=== PATIENT | female | born 1955 | race Caucasian/White ===

== ENCOUNTER 2016-12-21 07:43 | Emergency (ER) | payer MEDICARE, BC ==
--- NOTE | ~2016-12-21 | CR230 ---
[facility] Service of [facility] & [facility] RADIOLOGY TEXT RESULTS PATIENT: DEBI HERNÁNDEZ LOCATION: [facility] : 53 UNIT #: [id number] AGE: [address]: Caroline Horner APRN SEX: F ORDER DR: [id number] [facility] [address] [place], [place] [address] [id number] E MR#: [id number] Acc #: [id number] NAME: DEBI HERNÁNDEZ : 1955 SEX: F STUDY DATE/TIME: 12/21/2016 7:35 UNIT: [facility] ROOM: STUDY DESCRIPTION: CR Shoulder Min 2 View Rt Attending Physician: Caroline Horner A.P.R.N. Ordering Physician: Ed Doctor [id number] [facility] Primary Care Physician: Lorenzo Dejesus D.O. MEDICAL IMAGING REPORT This report is preliminary unless electronic signature is present EXAM Right shoulder HISTORY Right shoulder pain after a fall today. FINDINGS 3 views of the right shoulder were obtained. There is no fracture or dislocation visible. There may be minimal spurring from the humeral head. IMPRESSION No acute injury or fracture or dislocation is identified. Dictated by... Carlos Alberto Benavides M.D. THIS IS AN ELECTRONICALLY VERIFIED REPORT Carlos Alberto Benavides M.D. at 12/21/2016 1:37 PM Billy TD: 12/21/2016 09:14 JOB #: [id number] MEDICAL IMAGING REPORT Page 1 of 1 COPY
--- NOTE | ~2016-12-21 | CT92 ---
[facility] A Service of [facility] RADIOLOGY TEXT RESULTS PATIENT: DEBI HERNÁNDEZ LOCATION: [facility] : 53 UNIT #: [id number] AGE: [address]: Caroline Horner APRN SEX: F ORDER DR: [id number] [facility] [address] [place], [place] [address] [id number] E MR#: [id number] Acc #: [id number] NAME: DEBI HERNÁNDEZ : 1955 SEX: F STUDY DATE/TIME: 12/21/2016 9:28 UNIT: [facility] ROOM: STUDY DESCRIPTION: CT Lower Ext Lt Wo Cont Attending Physician: Caroline Horner A.P.R.N. Ordering Physician: Caroline Horner A.P.R.N. Primary Care Physician: Lorenzo Dejesus D.O. MEDICAL IMAGING REPORT This report is preliminary unless electronic signature is present EXAM CT of the pelvis and hips without contrast - with coronal and sagittal reconstructions, 12/21/2016. COMPARISON STUDIES Left lower extremity venous Doppler, 12/21/2016. There are no correlative radiographs. HISTORY Technologist reports fell 12/03/2016. Left leg and hip pain. History of diabetes. No related surgery. TECHNIQUE This CT exam was performed with one or more of the following radiation dose reduction techniques: automatic exposure control, adjustment of mA and/or kV according to patient size, and iterative reconstruction. FINDINGS There is no fracture or dislocation. Specifically, left hip shows no visible fracture or osseous lesion. There is no hematoma. There are some chronic-appearing calcifications adjacent to the left greater trochanter in the region of the left gluteus minimus tendon insertion. There is no obvious surrounding gross edema or fluid. This could reflect chronic enthesopathy or less likely calcific tendinitis (calcium hydroxyapatite deposition disease). Correlate for pinpoint pain in this area. There is no gluteal muscle atrophy. There is atherosclerotic vascular calcification. There is minimal subcutaneous stranding of the anterior thighs, left greater than right, and in the lower abdominal subcutaneous space. [facility] A Service of [facility] & [facility] RADIOLOGY TEXT RESULTS PATIENT: DEBI HERNÁNDEZ LOCATION: [facility] #: [id number] : 51 UNIT #: [id number] AGE: [address]: Caroline Horner APRN SEX: F ORDER DR: Correlate for subcutaneous injections as the most common etiology. There is atherosclerotic vascular calcification. Sigmoid diverticulosis is noted. Hysterectomy is presumed. No internal pelvic pathology is otherwise noted. Small subarticular cyst at the right anterior inferior acetabulum could reflect mild arthritic change. This is opposite to the reported left-sided symptoms. IMPRESSION 1. No pelvic or hip fracture. 2. Several calcifications adjacent to the left greater trochanter in the region of the gluteus minimus tendon insertion most likely due to chronic enthesopathic change. Symptomatic calcific tendonitis (calcium hydroxyapatite deposition disease) is considered less likely as there is no obvious significant edema. Correlate for any pinpoint tenderness in this area. 3. Vascular calcification, sigmoid diverticulosis, and subcutaneous stranding in the lower pelvic subcutaneous space anteriorly and in the anterior thighs. Correlate for subcutaneous injections. 4. No acute abnormalities are noted. Dictated by... Nicole Lazo M.D. THIS IS AN ELECTRONICALLY VERIFIED REPORT Nicole Lazo M.D. at 12/21/2016 1:57 PM MARIE/scotty TD: 12/21/2016 11:10 JOB #: [id number] MEDICAL IMAGING REPORT Page 1 of 1 COPY
--- NOTE | ~2016-12-21 | US85 ---
[facility] A Service of [facility] & [facility] RADIOLOGY TEXT RESULTS PATIENT: DEBI HERNÁNDEZ LOCATION: [facility] : 53 UNIT #: [id number] AGE: [address]: Caroline Horner APRN SEX: F ORDER DR: [id number] [facility] [address] [place], [place] [address] [id number] E MR#: [id number] Acc #: [id number] NAME: DEBI HERNÁNDEZ : 1955 SEX: F STUDY DATE/TIME: 12/21/2016 9:08 UNIT: [facility] ROOM: STUDY DESCRIPTION: [facility] [employer] Attending Physician: Caroline Horner A.P.R.N. Ordering Physician: Ed Jose M Archibald M.D. Primary Care Physician: Lorenzo Dejesus D.O. MEDICAL IMAGING REPORT This report is preliminary unless electronic signature is present EXAM Left lower extremity venous duplex Doppler. INDICATION Left lower extremity pain radiating from the hip into the left leg. 3-week duration. Followup 12/03/2016. COMPARISON None available. FINDINGS No deep vein thrombus is identified in the left lower extremity. The left common femoral vein through the left popliteal vein are widely patent. There is normal compressibility, spontaneous and phasic waveforms. No calf vein thrombus. IMPRESSION Negative for left lower extremity deep vein thrombosis. Dictated by... Bunny Bell M.D. THIS IS AN ELECTRONICALLY VERIFIED REPORT Bunny Bell M.D. at 12/21/2016 11:30 AM CLARIBEL/scotty TD: 12/21/2016 10:28 JOB #: [id number] MEDICAL IMAGING REPORT Page 1 of 1 COPY
== END 2016-12-21 11:19 | disposition home or self-care (01) ==
LOC: CED 07:43
DX: S46.911A Strain of unspecified muscle, fascia and tendon at shoulder and upper arm level, right arm, initial encounter (principal); S70.02XA Contusion of left hip, initial encounter; E11.9 Type 2 diabetes mellitus without complications; I10 Essential (primary) hypertension; G35 Multiple sclerosis; M79.662 Pain in left lower leg; F17.210 Nicotine dependence, cigarettes, uncomplicated; W19.XXXA Unspecified fall, initial encounter; Y92.009 Unspecified place in unspecified non-institutional (private) residence as the place of occurrence of the external cause
CPT/HCPCS: 73030; 73700; 93971; 96372; 99284; J2270

== ENCOUNTER 2016-12-24 15:01 | Inpatient (IN) | payer MEDICARE, BC ==
--- NOTE | ~2016-12-24 | DS ---
Unit #: [id number] #: [id number] Patient: DEBI HERNÁNDEZ [id number] [address] [address] [id number] I MR#: [id number] NAME: DEBI HERNÁNDEZ. ROOM: 569 Age: 61 Sex: F Admission Date: 12/24/2016 : 1955 Discharge Date: 12/30/2016 Attending Physician: Fei Rios M.D. Primary Care Physician: Lorenzo Dejesus D.O. DISCHARGE SUMMARY CHIEF COMPLAINT Hypoxemia. ADMITTING DIAGNOSES 1. Acute hypoxic respiratory failure. 2. Diabetes mellitus type 2, poorly controlled. 3. Hypertension. 4. Hyperlipidemia. 5. Multiple sclerosis. 6. History of chronic obstructive pulmonary disease. 7. History of chronic smoking. 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 HISTORY OF PRESENTING ILLNESS The patient is a 61-year-old lady with a past medical history of diabetes, hypertension, hyperlipidemia, multiple sclerosis, COPD, and a chronic smoker, who was admitted through the emergency room because of hypoxemia. She was on home oxygen and in spite of (1) her pulse oximetry was low. It was 83% on room air. She also had a spike of fever up to 100.7 at home prior to hospitalization. HOSPITAL COURSE She was started on steroids, breathing treatments, and antimicrobials. She was seen by Pulmonary. She did have an ultrasound of lower extremities which was negative for DVT. She started to (2) her oxygen requirements were coming down. I spoke with her multiple times requesting her to quit smoking. She is doing clinically better, and she will be discharged to pulmonary rehab. PHYSICAL EXAMINATION ON DAY OF DISCHARGE VITAL SIGNS: Temperature 97.7, pulse rate 65, respirations 18, and blood pressure 135/58. GENERAL: Patient is alert, oriented x3, and lying in the bed in no acute distress. HEENT: Normocephalic and atraumatic. No icterus. PERRLA. Extraocular muscles intact. CHEST: Bilateral equal air entry, clear to auscultation. HEART: S1 and S2, regular rate and rhythm. ABDOMEN: Soft and nontender. Bowel sounds presents. EXTREMITIES: No edema. Normal pulses. Unit #: [id number] #: [id number] Patient: DEBI HERNÁNDEZ DISCHARGE MEDICATIONS 1. Tapering dose of oral prednisone. 2. Combivent 3 mL q.4 p.r.n. for shortness of breath. 3. Zoloft 25 mg daily. 4. Metformin 500 mg twice daily. 5. Nicotine 14 mg topical patch daily. 6. Norvasc 10 mg daily. 7. Humibid-LA 600 mg p.o. twice daily. 8. Lipitor 20 mg daily. 9. NovoLog insulin sliding scale. 10. Omeprazole 20 mg daily. 11. Vitamin D (cholecalciferol) 1000 units p.o. daily. 12. Copaxone 20 mg IM. She is supposed to get shots weekly as an outpatient. FOLLOWUP She is instructed to follow with her primary care after discharge. Total time spent in her discharge 35 minutes. Dictated by... Uyen Casarez/marcela TD: 12/30/2016 14:43 JOB #: [id number] DISCHARGE SUMMARY Page 1 of 1 X X DISCHARGE SUMMARY
--- NOTE | ~2016-12-24 | CR72 ---
[facility] A Service of [facility] & [facility] RADIOLOGY TEXT RESULTS PATIENT: DEBI HERNÁNDEZ LOCATION: [facility] 569-01 : 53 UNIT #: [id number] AGE: [address]: Silvia Cummins MD SEX: F ORDER DR: [id number] [facility] [address] [place], [place] [address] [id number] E MR#: [id number] Acc #: [id number] NAME: DEBI HERNÁNDEZ : 1955 SEX: F STUDY DATE/TIME: 12/24/2016 15:05 UNIT: [facility] ROOM: STUDY DESCRIPTION: CR Chest Single View Portable Attending Physician: Filipe Brock D.O. Ordering Physician: Filipe Brock D.O. Primary Care Physician: Lorenzo Dejesus D.O. MEDICAL IMAGING REPORT This report is preliminary unless electronic signature is present EXAM Portable chest x-ray 12/24/2016 HISTORY Short of air. Low O2 sats, cough, congestion, fever began 3 days ago. Smoker 50 years. Single AP radiograph chest is presented. COMPARISON STUDIES No comparisons. Comparison with prior study strongly recommended if available. FINDINGS No acute-appearing bony abnormality. Heart [id number] limits of normal in size. Lungs slightly hyperinflated suggesting underlying COPD in this patient with long-term history of tobacco usage. Ill-defined patchy densities in the left hilar region and in the left lower lung zone and to a lesser extent the right lower lung zone. Findings probably reflect, given stated history, multifocal pneumonia. The left hilar densities are more pronounced than those elsewhere and have a vaguely band-like or slightly nodular configuration. This could be a reflection of some degree of underlying atelectasis in addition to the presumed pneumonia. In light of the patient's long-term tobacco usage, short interval followup in 2-3 weeks after treatment for presumed pneumonia is strongly recommended to confirm resolution of findings particularly given the slightly band-like or nodular appearance of the left hilum. If these findings do not resolve in the near-term or if the patient in facet is not demonstrating signs and symptoms of pneumonia at this time, CT would be recommended for further characterization. There is no pneumothorax. There is a small left pleural effusion. [facility] A Service of [facility] RADIOLOGY TEXT RESULTS PATIENT: DEBI HERNÁNDEZ LOCATION: [facility] 569-01 : [birth year] UNIT #: [id number] AGE: [address]: Silvia Cummins MD SEX: F ORDER DR: Dictated by... Navneet Portillo M.D. THIS IS AN ELECTRONICALLY VERIFIED REPORT Navneet Portillo M.D. at 12/28/2016 7:36 AM Denise TD: 12/24/2016 17:30 JOB #: [id number] MEDICAL IMAGING REPORT Page 1 of 1 COPY
--- NOTE | ~2016-12-24 | EKG ---
PATIENT: DEBI HERNÁNDEZ UNIT #: [id number] Ventricular Rate: 91 BPM Atrial Rate: 91 BPM P-R Interval: 136 ms QRS Duration: 74 ms Q-T Interval: 336 ms QTC Calculation(Bezet): 413 ms P [place]: 61 degrees Calculated R [place]: 67 degrees Calculated T [place]: 81 degrees Diagnosis Line: Normal sinus rhythm Diagnosis Line: ST and T wave abnormality, consider lateral ischemia Diagnosis Line: Prolonged QT Diagnosis Line: Abnormal ECG Diagnosis Line: No previous ECGs available Diagnosis Line: Confirmed by VIRI ANDRES MD ([id number]) on Diagnosis Line: 12/26/2016 8:44:23 AM INTERPRETING MD: MCKENZIE
--- NOTE | ~2016-12-24 | HP ---
Unit #: [id number] #: [id number] Patient: DEBI HERNÁNDEZ [id number] [facility] [address] [place], [place] [address] [id number] I MR#: [id number] NAME: DEBI HERNÁNDEZ. ROOM: 92427 Age: 61 Sex: F Admission Date: 12/24/2016 : 1955 Attending Physician: Silvia Cummins M.D. Primary Care Physician: Lorenzo Dejesus D.O. HISTORY AND PHYSICAL CHIEF COMPLAINT Low oxygen. HISTORY OF PRESENT ILLNESS The patient is a 61-year-old female with past medical history of diabetes, hypertension, hyperlipidemia, multiple sclerosis, likely COPD, who presented to the emergency department for evaluation of the above. The patient states that she has had a three-day history of increasing shortness of breath and nonproductive cough. She reports fever and chills. She denies any chest pain. She has had decreased appetite but no vomiting or diarrhea. No urinary symptoms. The patient was seen at an urgent care facility and sent to the emergency department due to "low oxygen." Upon arrival in the emergency department, oxygen saturation was 83% on room air, temperature 100.7. Chest x-ray shows findings concerning for multifocal pneumonia. She was given Rocephin and azithromycin in the emergency department as well as Solu-Medrol. She is being admitted to [facility] for evaluation and further treatment. PAST MEDICAL HISTORY 1. The patient denies ever being hospitalized overnight. 2. Diabetes. 3. Hypertension. 4. Hyperlipidemia. 5. Multiple sclerosis maintained on Copaxone followed by Dr. Henley. 6. Likely COPD. The patient denies ever being told she has COPD. 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 PAST SURGICAL HISTORY 1. Rotator cuff repair. 2. Hysterectomy. 3. . ALLERGIES 1. Penicillin. 2. Codeine. 3. Lexapro. HOME MEDICATIONS 1. Proventil q.6 h. p.r.n. 2. Doxycycline 100 mg b.i.d. 3. Medrol Dosepak. Unit #: [id number] #: [id number] Patient: DEBI HERNÁNDEZ 4. Omeprazole. 5. Amlodipine 10 mg daily. 6. Metformin 500 mg b.i.d. 7. Lipitor 20 mg daily. 8. Sertraline 25 mg daily. 9. Vitamin D 1000 units daily. 10. Copaxone 20 mg IM as directed. SOCIAL HISTORY The patient lives with her . She smokes two packs of cigarettes daily. She walks with a walker. FAMILY HISTORY Notable for her father having "heart problems." REVIEW OF SYSTEMS A complete review of systems is negative except as indicated in the HPI. The patient does not routinely check blood sugars at home. PHYSICAL EXAMINATION VITAL SIGNS: Temperature 100.7, pulse 95, respirations 18, blood pressure 131/51, oxygen saturation 83% on room air. GENERAL: The patient is a female who is awake and alert in no acute distress. HEENT: Head is atraumatic. Mucous membranes are moist. NECK: Supple. Trachea is midline. LUNGS: Demonstrate scattered inspiratory and expiratory wheezes and rhonchi. Breathing is not labored with conversation. HEART: Regular rate and rhythm. ABDOMEN: Soft, nontender. Bowel sounds present in all four quadrants. EXTREMITIES: Nontender with no pedal edema. NEUROLOGIC: Patient is awake and alert. She follows commands. PSYCHIATRIC: Mood and affect are normal. Patient is cooperative. SKIN OF EXAMINED AREAS: Warm and dry. DIAGNOSTIC STUDIES LABORATORY: BNP 31. Lactic acid 2. Comprehensive metabolic panel notable for potassium 3.4, chloride 98, glucose 154, ALT 43, alkaline phosphatase 111. INR 1. Complete blood count is essentially normal. Arterial blood gas shows pH 7.429, pCO2 of 41.4, pO2 of 62.4 on 4 liters. Rapid flu screen is negative. Troponin is less than 0.05. IMAGING: Chest x-ray shows multifocal infiltrates. CARDIOVASCULAR: EKG shows normal sinus rhythm with a rate of 91 beats per minute. ASSESSMENT The patient is a 61-year-old female with: 1. Acute respiratory failure, hypoxic. 2. Pneumonia, community acquired. The patient received Rocephin and azithromycin in the emergency department. 3. Sepsis with initial lactic acid of 2. 4. Likely chronic obstructive pulmonary disease exacerbation. The patient received Solu-Medrol in the emergency department. 5. Tobacco abuse. 6. Hypokalemia. 7. Diabetes. Unit #: [id number] #: [id number] Patient: DEBI HERNÁNDEZ 8. Hypertension. 9. Hyperlipidemia. 10. Multiple sclerosis. PLAN 1. Admit to intermediate level. 2. Healthy-heart consistent carb diet. 3. Normal saline at 75 mL per hour. 4. Supplemental oxygen. 5. DuoNeb q.4 h. while awake and q.2 h. p.r.n. 6. Solu-Medrol 80 mg IV q.12 h. 7. Mucinex 600 mg p.o. b.i.d. 8. Rocephin and azithromycin for community-acquired pneumonia pending further workup. 9. Check procalcitonin level. 10. Sepsis protocol with repeat lactic acid. 11. Serial cardiac enzymes. 12. Check magnesium. 13. Potassium magnesium protocol. 14. Hemoglobin A1c. 15. Low-dose sliding scale insulin with Accu-Cheks. 16. Protonix for GI prophylaxis since patient will be on Solu-Medrol. 17. SCDs for DVT prophylaxis. 18. Repeat labs in the morning including magnesium. 19. Additional workup and consultants based on above. Dictated by Uyen Kelsey/tata TD: 12/24/2016 20:23 JOB #: [id number] HISTORY AND PHYSICAL Page 1 of 1 X Silvia Cummins MD X HISTORY AND PHYSICAL
--- NOTE | ~2016-12-24 | CO ---
Unit #: [id number] #: [id number] Patient: DEBI HERNÁNDEZ [id number] [address] [place], [place] [address] [id number] I MR#: [id number] NAME: DEBI HERNÁNDEZ. ROOM: 569 Age: 61 Sex: F Admission Date: 12/24/2016 : 1955 Attending Physician: Evert Mojica M.D. Primary Care Physician: Lorenzo Dejesus D.O. Consultation Date: 12/28/2016 CONSULTATION REPORT REASON FOR CONSULT Hypoxia. HISTORY OF PRESENT ILLNESS This is a very pleasant 61-year-old female with past medical history significant for diabetes, hypertension, hyperlipidemia, multiple sclerosis, and extensive history of smoking of two packs per day for at least 50 years, who presented to the emergency room as a transfer from the urgent care with severe hypoxia. The patient stated that she developed sudden onset of dry hacking cough and progressive shortness of breath. She denied any fever, chills, or night sweats. She presented to the urgent care where her exam and oxygen level were very concerning. Per the patient's report, her oxygen was as low as 60%, so patient was transferred to our ER for further evaluation and management. Her chest x-ray showed a left hilar pneumonia. Upon presentation, her oxygen requirement was as high as 10 L high flow. Patient stated again that she smoked for 50 years, at least two packs per day. She quit for five months at some point with Chantix but she had recurrence after her sister had a car accident. At baseline, she is dyspneic mainly on exertion but she is able to manage her daily activities. She is not on any inhalers and she has never been told she has COPD. PAST MEDICAL HISTORY 1. Diabetes. 2. Hypertension. 3. Hyperlipidemia. 4. Multiple sclerosis. 5. Presumed COPD. PAST SURGICAL HISTORY 1. Rotator cuff repair. 2. Hysterectomy. 3. . ALLERGIES Codeine, Lexapro, and penicillin. HOME MEDICATIONS Unit #: [id number] #: [id number] Patient: DEBI HERNÁNDEZ 1. Omeprazole. 2. Norvasc. 3. Metformin. 4. Lipitor. 5. Sertraline. 6. Vitamin D. 7. Copaxone. SOCIAL HISTORY The patient lives with her . She smokes two packs of cigarettes daily for at least 50 years. She managed her daily activities and she is not on oxygen. FAMILY HISTORY Coronary artery disease. REVIEW OF SYSTEMS A 12-point review of systems was obtained and was negative except for what was mentioned in HPI. PHYSICAL EXAMINATION GENERAL: The patient currently is in no acute distress. VITAL SIGNS: Blood pressure 147/59, respiratory rate 16, O2 saturation 96%. HEENT: Atraumatic, normocephalic. PERRLA. EOMI. NECK: Supple. No JVD. No lymphadenopathy. CHEST: Decreased breath sounds bilaterally with bilateral lower lobe rhonchi. HEART: S1, S2. No murmur, rub, or gallops. ABDOMEN: Soft, nontender. Bowel sounds are positive. No hepatosplenomegaly. EXTREMITIES: No edema or cyanosis. SKIN: No rashes. CENTRAL NERVOUS SYSTEMS: Awake, alert, oriented x3. No focal motor/sensory deficits. DIAGNOSTIC STUDIES LABORATORY: Creatinine 0.5. PO2 on a blood gas was 62. White blood count is 9.6, hemoglobin 11.3. IMAGING: Chest x-ray concerning for left hilar pneumonia. ASSESSMENT 1. Acute hypoxic respiratory failure. 2. Pneumonia, likely atypical. 3. Acute exacerbation of chronic obstructive pulmonary disease. 4. Extensive history of smoking. 5. Hypertension. 6. Diabetes. 7. Presumed obstructive sleep apnea. PLAN 1. The patient's oxygen will be titrated down but she will likely need oxygen on discharge; however, the length of this treatment will be determined by time and followup as an outpatient. 2. The patient was counseled extensively about smoking cessation and she is interested in quitting. She tried Chantix in the past with a great success, so we will attempt that again as an outpatient. Unit #: [id number] #: [id number] Patient: DEBI HERNÁNDEZ 3. Patient will need PFT, sleep study, and alpha 1 antitrypsin screening as an outpatient. 4. Due to the severity of her presentation and the oxygen requirement, I suggest we continue the patient on antibiotics for possible superimposed bacterial pneumonia and nonetheless, the patient has severe exacerbation of chronic obstructive pulmonary disease that warrants at least azithromycin. Will discuss that with Dr. Mojica. 5. Patient needs a chest x-ray plus/minus CT chest follow up in two to four weeks. 6. Will continue patient on bronchodilator and mucolytics with IV steroids. 7. Steroid inhaler will be determined based on her PFT as an outpatient. I would like to thank Dr. Mojica for allowing me to be a part of this patient's care. Dictated by... Uyen Manning TD: 12/28/2016 10:39 JOB #: [id number] CONSULTATION REPORT Page 1 of 1 X LICHA CAMPBELL MD X CONSULTATION REPORT
[2016-12-24 15:22] LABS: POC - CKMB <1.0 ng/mL (0.0-7.9); POC - TROPONIN <0.05 ng/mL (<=0.05)
[2016-12-24 15:34] LABS: INFLUENZA A NEG (NEG); INFLUENZA B NEG (NEG)
[2016-12-24 15:42] LABS: BASOPHIL% 0.2 % (0-2.5); HEMATOCRIT 39.7 % (35.0-45.0); LYMPHOCYTE# 0.9 X10e3 (1.0-3.5); LYMPHOCYTE% 9.9 % (17.0-45.0); MEAN CELL VOLUME 84.9 FL (83-96); MEAN CORPUSCULAR HEMOGLOBIN 27.8 PG (28-34); MEAN CORPUSCULAR HGB CONC 32.8 g/dL (30-36); MEAN PLATELET VOLUME 8.5 FL (6.5-11.5); MONOCYTE# 0.6 X10e3 (0-1.0); MONOCYTE% 6.5 % (3.0-12.0); NEUTROPHIL# 7.4 X10e3 (1.5-7.1); NEUTROPHIL% 83.4 % (40-75); PLATELET COUNT 174 X10e3 (140-420); RED BLOOD COUNT 4.68 X10e (3.90-5.30); RED CELL DISTRIBUTION WIDTH 15.3 % (11.0-15.5); WHITE BLOOD COUNT 8.9 X10e3 (4.0-10.5)
[2016-12-24 15:43] LABS: ARTERIAL BLD GAS O2 SATURATION 91.8 % (90.0-100.0); ARTERIAL BLOOD GAS CARBOXY HB 1.8 %sat (0.0-9.0); ARTERIAL BLOOD GAS HCO3 27.4 mmol/L; ARTERIAL BLOOD GAS MET HB 0.8 %sat (0.0-2.0); ARTERIAL BLOOD GAS PCO2 41.4 mmHg (35.0-45.0); ARTERIAL BLOOD GAS PO2 62.4 mmHg (80.0-100); ARTERIAL BLOOD GAS pH 7.429 (7.350-7.450)
[2016-12-24 15:44] LABS: ARTERIAL BLOOD GAS ALLEN TEST NORMAL; ARTERIAL BLOOD GAS ART SITE LEFT RADIAL; ARTERIAL BLOOD GAS DELIVERY NASAL CANNULA; ARTERIAL DRAW? YES
[2016-12-24 15:45] LABS: DIFF IND NO
[2016-12-24 15:49] LABS: PARTIAL THROMBOPLASTIN TIME 29.6 SECONDS (23.5-31.3); PROTHROMBIN TIME (PATIENT) 10.8 SECONDS (9.6-11.5)
[2016-12-24 15:59] LABS: ALBUMIN SERUM 4.2 g/dL (3.5-5.0); ALKALINE PHOSPHATASE 111 U/L (32-92); ALT (SGPT) 43 U/L (10-40); AST (SGOT) 28 U/L (10-42); BILIRUBIN,TOTAL 0.2 mg/dL (0.2-2.0); BLOOD UREA NITROGEN 17 mg/dL (9-23); BUN/CREATININE RATIO 24.28; CALCIUM SERUM 8.8 mg/dL (8.4-10.2); CARBON DIOXIDE 26 mmol/L (22-31); CHLORIDE 98 mmol/L (100-111); CREATININE SERUM 0.7 mg/dL (0.6-1.4); GLOM FILT RATE Estimated 92.2 mL/min (>60); GLUCOSE FASTING 154 mg/dL (70-110); POTASSIUM 3.4 mmol/L (3.5-5.1); PROTEIN TOTAL SERUM 7.9 g/dL (6.0-8.3); SODIUM 135 mmol/L (135-145)
[2016-12-24 16:05] LABS: BILIRUBIN, DIRECT <0.1 mg/dL (0.0-0.2); BILIRUBIN,INDIRECT 0.1 mg/dL (0.0-0.9)
[2016-12-24] MEDS ORDERED: ALBUTEROL 0.5ML INH (16:35)
[2016-12-24] MEDS ORDERED: VIBRAMYCIN100 M1 PO (16:36)
[2016-12-24] MEDS ORDERED: MEDROL DOSEPAK4 MG PO (16:37)
[2016-12-24] MEDS ORDERED: OXYGEN (16:38)
[2016-12-24] MEDS ORDERED: OMEPRAZOLE20 M1 PO (16:57)
[2016-12-24] MEDS ORDERED: AMLODIPINE BESY10 MG PO (16:58)
[2016-12-24] MEDS ORDERED: METFORMIN HCL500 M3 PO (16:59)
[2016-12-24] MEDS ORDERED: LIPITOR20 MG PO (17:00)
[2016-12-24] MEDS ORDERED: SERTRALINE HCL25 M1 PO (17:00)
[2016-12-24] MEDS ORDERED: VITAMIN D1000 UNIT PO (17:01)
[2016-12-24] MEDS ORDERED: [UNRECOGNIZED DRUG - OTHER] IM (17:10)
[2016-12-24 19:05] LABS: MAGNESIUM 1.6 mg/dL (1.6-3.0)
[2016-12-24 19:34] LABS: PROCALCITONIN <0.05 NG/ML
[2016-12-24 23:55] LABS: %MB 0.3 % (0.0-4.0); MB 1.3 ng/ml
[2016-12-25 02:26] LABS: BUN/CREATININE RATIO 28.33; CALCIUM SERUM 8.3 mg/dL (8.4-10.2); CREATININE SERUM 0.6 mg/dL (0.6-1.4)
[2016-12-25 07:21] LABS: ALBUMIN SERUM 3.2 g/dL (3.5-5.0); BILIRUBIN,TOTAL 0.4 mg/dL (0.2-2.0); CALCIUM SERUM 8.4 mg/dL (8.4-10.2); CREATININE SERUM 0.5 mg/dL (0.6-1.4); MAGNESIUM 3.5 mg/dL (1.6-3.0); POTASSIUM 4.5 mmol/L (3.5-5.1); PROTEIN TOTAL SERUM 6.2 g/dL (6.0-8.3)
[2016-12-25 07:58] LABS: %MB 0.3 % (0.0-4.0); MB 2.1 ng/ml
[2016-12-25 11:38] LABS: BASOPHIL% 0.1 % (0-2.5); HEMATOCRIT 34.1 % (35.0-45.0); HEMOGLOBIN 11.2 gm/dL (12.0-16.0); LYMPHOCYTE# 0.8 X10e3 (1.0-3.5); LYMPHOCYTE% 12.3 % (17.0-45.0); MEAN CELL VOLUME 84.6 FL (83-96); MEAN CORPUSCULAR HEMOGLOBIN 27.9 PG (28-34); MEAN PLATELET VOLUME 8.6 FL (6.5-11.5); MONOCYTE# 0.3 X10e3 (0-1.0); MONOCYTE% 3.8 % (3.0-12.0); NEUTROPHIL# 5.6 X10e3 (1.5-7.1); NEUTROPHIL% 83.8 % (40-75); PLATELET COUNT 161 X10e3 (140-420); RED BLOOD COUNT 4.02 X10e (3.90-5.30); WHITE BLOOD COUNT 6.6 X10e3 (4.0-10.5)
[2016-12-25 11:51] LABS: DIFF IND NO
[2016-12-26 06:50] LABS: HEMATOCRIT 34.6 % (35.0-45.0); HEMOGLOBIN 11.3 gm/dL (12.0-16.0); MEAN CELL VOLUME 84.4 FL (83-96); MEAN CORPUSCULAR HEMOGLOBIN 27.6 PG (28-34); MEAN CORPUSCULAR HGB CONC 32.7 g/dL (30-36); RED BLOOD COUNT 4.1 X10e (3.90-5.30); RED CELL DISTRIBUTION WIDTH 15.4 % (11.0-15.5); WHITE BLOOD COUNT 9.6 X10e3 (4.0-10.5)
[2016-12-26 07:53] LABS: CALCIUM SERUM 8.6 mg/dL (8.4-10.2); CREATININE SERUM 0.5 mg/dL (0.6-1.4); POTASSIUM 4.5 mmol/L (3.5-5.1)
[2016-12-29 07:11] LABS: MAGNESIUM 2.1 mg/dL (1.6-3.0); POTASSIUM 3.8 mmol/L (3.5-5.1)
[2016-12-30 06:53] LABS: HEMATOCRIT 36.2 % (35.0-45.0); HEMOGLOBIN 11.9 gm/dL (12.0-16.0); MEAN CELL VOLUME 83.3 FL (83-96); MEAN CORPUSCULAR HEMOGLOBIN 27.4 PG (28-34); MEAN CORPUSCULAR HGB CONC 32.9 g/dL (30-36); MEAN PLATELET VOLUME 7.3 FL (6.5-11.5); RED BLOOD COUNT 4.34 X10e (3.90-5.30); RED CELL DISTRIBUTION WIDTH 15.1 % (11.0-15.5)
[2016-12-30 07:31] LABS: BUN/CREATININE RATIO 35.71; CALCIUM SERUM 8.8 mg/dL (8.4-10.2); CREATININE SERUM 0.7 mg/dL (0.6-1.4); GLOM FILT RATE Estimated 92.2 mL/min (>60); POTASSIUM 3.9 mmol/L (3.5-5.1)
== END 2016-12-30 18:26 | DRG 871 ==
LOC: CED 15:01 → CEDOF 18:30 → C5C 12-25 01:29
PROVIDERS: Emergency Medicine; Family Medicine; Internal Medicine
PROC: B246ZZZ Ultrasonography of Right and Left Heart (ICD-10-PCS; principal; 2016-12-26)
DX: A41.9 Sepsis, unspecified organism (principal); J96.01 Acute respiratory failure with hypoxia; J18.9 Pneumonia, unspecified organism; J44.1 Chronic obstructive pulmonary disease with (acute) exacerbation; J44.0 Chronic obstructive pulmonary disease with (acute) lower respiratory infection; F17.210 Nicotine dependence, cigarettes, uncomplicated; E87.6 Hypokalemia; E11.65 Type 2 diabetes mellitus with hyperglycemia; Z79.84 Long term (current) use of oral hypoglycemic drugs; I10 Essential (primary) hypertension; E78.5 Hyperlipidemia, unspecified; G35 Multiple sclerosis; Z88.5 Allergy status to narcotic agent; Z88.0 Allergy status to penicillin; Z88.8 Allergy status to other drugs, medicaments and biological substances; Z90.710 Acquired absence of both cervix and uterus
CPT/HCPCS: 36600; 71010; 80048; 80053; 80076; 82308; 82550; 82553; 82803; 82947; 83036; 83605; 83735; 83880; 84132; 84484; 85025; 85027; 85610; 85730; 87040; 87804; 93005; 93306; 94640; 94760; 96374; 97110; 97116; 97162; 97166; 97530; 97535; 99291; G8978-GP; G8979-GP; G8987-GO; G8988-GO; J0456; J0696; J1815; J2920; J2930; J3475

== ENCOUNTER → 2017-05-11 | Outpatient (CLI) | payer MEDICARE, BC ==
[~2017-05-11] MED LIST: ALBUTEROL 0.5ML INH; AMLODIPINE BESY10 MG PO; LIPITOR20 MG PO; MEDROL DOSEPAK4 MG PO; METFORMIN HCL500 M3 PO; OMEPRAZOLE20 M1 PO; OXYGEN; SERTRALINE HCL25 M1 PO; VIBRAMYCIN100 M1 PO; VITAMIN D1000 UNIT PO; [UNRECOGNIZED DRUG - OTHER] IM
--- NOTE | ~2017-05-11 | MY29 ---
[facility] A Service of [facility] RADIOLOGY TEXT RESULTS PATIENT: DEBI HERNÁNDEZ LOCATION: [facility] : 51 UNIT #: [id number] AGE: [address]: SHAMIKA KHAN DO SEX: F ORDER DR: [id number] [facility] [address] [place], [place] [address] [id number] O MR#: [id number] #: [id number] NAME: DEBI HERNÁNDEZ : 1955 SEX: F STUDY DATE/TIME: 05/11/2017 10:39 UNIT: [facility] ROOM: STUDY DESCRIPTION: [facility] SCREENING W/ CAD BILAT Attending Physician: Shamika Khan D.O. Ordering Physician: Shamika Khan D.O. Primary Care Physician: Shamika Khan D.O. MEDICAL IMAGING REPORT This report is preliminary unless electronic signature is present EXAM Digital screening mammogram with CAD INDICATIONS Routine screening. PROCEDURE Bilateral CC and MLO views obtained on a digital mammography unit; FDA-approved CAD device utilized. COMPARISON 07/17/2014 and 03/29/2016. FINDINGS Scattered fibroglandular density. No dominant mass or suspicious calcification. IMPRESSION Negative screening mammogram; screening interval in 1 year is suggested. Patients over the age of 40 are entered into a reminder system with target due date for the next mammogram. A result letter will also be sent to the patient. BIRADS: 1 Negative Dictated by... Saw Moralez M.D. THIS IS AN ELECTRONICALLY VERIFIED REPORT Saw Moralez M.D. at 05/12/2017 7:01 AM ELIZABETH/zachery [facility] A Service of [facility] RADIOLOGY TEXT RESULTS PATIENT: DEBI HERNÁNDEZ LOCATION: [facility] : 51 UNIT #: [id number] AGE: [address]: SHAMIKA KHAN DO SEX: F ORDER DR: TD: 05/11/2017 17:35 JOB #: [id number] MEDICAL IMAGING REPORT Page 1 of 1 COPY
== END | disposition home or self-care (01) ==
LOC: CWCC 10:31
DX: Z12.31 Encounter for screening mammogram for malignant neoplasm of breast (principal)
CPT/HCPCS: G0202